=== PATIENT | female | born 1965 | race Caucasian/White ===

== ENCOUNTER → 2016-11-24 | Outpatient (CLI) | payer OTHER | LOC: HEART 5 10:48 | DX: R06.02 Shortness of breath (principal); R94.2 Abnormal results of pulmonary function studies; Z87.891 Personal history of nicotine dependence | CPT/HCPCS: 94060; 94729 ==

== ENCOUNTER → 2016-11-24 | Outpatient (CLI) | payer OTHER | LOC: LAB 13:01 | DX: J45.909 Unspecified asthma, uncomplicated (principal); J44.9 Chronic obstructive pulmonary disease, unspecified | CPT/HCPCS: 36415; 82785 ==

== ENCOUNTER → 2021-03-24 | Outpatient (CLI) | payer OTHER ==
[~2021-03-24] MED LIST: ANORO ELLIPTA1 EACH INH; BACLOFEN10 MG PO; BUSPAR 10MG10 MG PO; DULOXETINE HCL30 MG PO; GABAPENTIN100 MG PO; POTASSIUM CHLO20 ME2 PO; PROVENTIL HFA6.7 GM INH; QVAR INH; SINGULAIR10 MG PO; SYNTHROID75 MCG PO; WELLBUTRIN SR150 M1 PO
== END ==
LOC: KOH-I 10:35
DX: Z87.891 Personal history of nicotine dependence (principal); R91.8 Other nonspecific abnormal finding of lung field
CPT/HCPCS: 71271

== ENCOUNTER → 2022-04-25 | Outpatient (CLI) | payer OTHER | LOC: HEART 5 14:36 | DX: J44.9 Chronic obstructive pulmonary disease, unspecified (principal) | CPT/HCPCS: 94060; 94729 ==